=== PATIENT | female | born 1980 | race Caucasian/White ===

== ENCOUNTER 2017-09-20 17:39 | Emergency (ER) | payer MEDICAID | END 2017-09-20 21:24 | disposition home or self-care (01) | LOC: D.ER 17:39 | DX: L03.113 Cellulitis of right upper limb (principal); E11.9 Type 2 diabetes mellitus without complications; F17.200 Nicotine dependence, unspecified, uncomplicated ==

== ENCOUNTER 2018-01-10 07:50 | Day surgery (SDC) | payer MEDICAID ==
[2018-01-09 12:34] LABS: BASOPHILS 0.2 % (0-2); HEMATOCRIT 41.2 % (36.0-48.0); HEMOGLOBIN 14.2 g/dL (12-16); IMMATURE GRANULOCYTES 0.2 % (0-5); LYMPHOCYTES 34.1 % (15-50); MCHC 34.5 g/dL (31.0-37.0); MCV 92.8 fL (80.0-100.0); MEAN PLATELET VOLUME 12.1 fL (7.4-10.4); MONOCYTES 4.6 % (2-11); NEUTROPHILS 57.9 % (40-80); PLATELET COUNT 162 10x3/uL (130-400); RBC 4.44 10x6/uL (4.00-5.40); RDW 12.9 % (11.5-14.5); WBC 8.5 10x3/uL (4.8-10.8)
[2018-01-09 12:44] LABS: CALC OSMOLALITY 284 mosm/kg (275-300); CALCIUM 8.7 mg/dL (8.5-10.1); CARBON DIOXIDE 33.5 mmol/L (21.0-32.0); CHLORIDE - SERUM 105 mmol/L (98-107); CREATININE - SERUM 0.6 mg/dL (0.6-1.3); GLUCOSE 128 mg/dL (74-106); POTASSIUM - SERUM 4.7 mmol/L (3.5-5.1); SODIUM 142 mmol/L (136-145); UREA NITROGEN 12 mg/dL (7-18); eGFR NON AFRICAN AMERICAN > 90 mL/min (90-120)
[~2018-01-10] VITALS: Ht 170.2 cm; Wt 110.7 kg
--- NOTE | ~2018-01-10 | OP ---
PATIENT NAME: GABRIEL FAULKNER MEDICAL RECORD: [id number] :84 LOCATION:D.OPS ADMISSION DATE: SURGEON: CARLOS SORIANO MD DATE OF OPERATION: 01/10/2018 PREOPERATIVE DIAGNOSIS: Pelvic pain. POSTOPERATIVE DIAGNOSES: 1. Pelvic pain. 2. Pelvic adhesions. PROCEDURES: 1. Diagnostic laparoscopy. 2. Lysis of adhesions. 3. Bilateral salpingo-oophorectomy. SURGEON: Carlos Soriano MD MOTOR REBUILDER: Dianne Dumont ANESTHESIOLOGIST: Jalen Valencia MD ANESTHETIC: General. FINDINGS: Adhesions of the omentum across the lower pelvis. The right ovary was unremarkable as well as the right tube. The left ovary was adhesed to the sidewall with left tube appearing unremarkable. Portion of the large bowel was adhesed to the left abdominal wall. What was visualized of the liver edge was unremarkable. Dense adhesions were above the umbilicus. SPECIMENS REMOVED: Right and left ovary with tubes. SPECIMEN DISPOSITION: Pathology. ESTIMATED BLOOD LOSS: Less than or equal to 50 cc. FLUIDS: One liter lactated Ringer's. URINE OUTPUT: Quantity sufficient void prior to the procedure. DRAINS: None. COMPLICATION: None. INDICATION: The patient is a 37-year-old female with long-standing pelvic pain. Long discussion was held with the patient in regards to Depo Lupron versus oophorectomy. The patient has concerns of ovarian cancer and persistent pelvic pain. The patient desires bilateral salpingo-oophorectomy. DESCRIPTION OF PROCEDURE: After informed consent was assured, the patient was taken to the operating room, where anesthetic was obtained. The patient was placed supine on the table and prepped and draped. An incision was made to accommodate a 5-mm trocar, which was inserted and pneumoperitoneum was developed without incident. Accessory ports were now placed in right and left lower quadrants and in the midline. A 10-12 port was the midline port. Through the OPERATIVE REPORT [id number] GABRIEL FAULKNER right hand port, a grasper was inserted and the left tube and ovary were brought on gentle traction to the midline. Using a [employer] coagulation cutter, the infundibulopelvic ligament was compressed, coagulated, and then . Three overlying areas of desiccation were performed before incising the IP. The dissection was carried down underneath the ovary and through the adhesions of the left side until freed. The ovary was freed and then removed through the 10-12 port. Inspection revealed adequate hemostasis and the ureter was well below the operative field. Attention was now directed to the right side. To facilitate visualization of the right ovary, the pelvic adhesions were taken down, beginning on the right and across the midline in the lower pelvis. Once this was performed, the ovary was grasped from the left hand port and placed on gentle traction. Again, the infundibulopelvic ligament was serially desiccated and incised. Once the incision has been performed, the serial compression, coagulation, and separation of the tissues connected to the right ovary was carried out until it was freed. Once the ovary was freed, an Endobag was now inserted to the pelvis and opened and the ovary was placed within. The Endobag was now removed with the ovary. The pelvis was now copiously irrigated and irrigant was removed. All dissection escobar were inspected and found to be hemostatic. The accessory trocars were removed under direct visualization as the pneumoperitoneum was released. The primary trocar was now removed. Subcuticular stitch and Dermabond were applied. Sponge, lap, and needle counts correct times 2. The patient went to the recovery area in stable condition. TRANSINT:[id number] Voice Confirmation ID: [id number] DOCUMENT ID: [id number] CARLOS SORIANO MD at 0431 CC: [id number] DICTATION DATE: 01/10/18 1411 SCHOOL BUS INSPECTOR: 01/10/18 1535 [facility] 01/10/18 [id number] [place] [address]
[~2018-01-10 07:50] MED LIST: ALDACTONE50 MG PO; CIPRO500 MG PO; FARXIGA10 MG PO; GLUCOTROL XL 1010 MG PO; LAMISIL250 MG PO; LEVOTHYROXINE100 MCG PO; PRAVASTATIN SOD10 MG PO; ULTRAM50 MG PO
[2018-01-10 10:15] VITALS: BP 120/74; Ht 170.2 cm; Wt 110.7 kg
== END 2018-01-10 16:45 | disposition home or self-care (01) ==
LOC: D.OPS 07:50 → D.PAN 08:00 → D.OPS 09:55 → D.PAN 09:55 → D.OPS 10:30
PROVIDERS: Obstetrics & Gynecology
DX: R10.2 Pelvic and perineal pain (principal); N73.6 Female pelvic peritoneal adhesions (postinfective)

== ENCOUNTER 2018-06-06 12:12 | Emergency (ER) | payer MEDICAID ==
[~2018-06-06] VITALS: Ht 170.2 cm; Wt 109.1 kg
[2018-06-06 12:23] VITALS: BP 133/84; Ht 170.2 cm; Wt 109.1 kg
[2018-06-06] MEDS ORDERED: NAPROSYN500 MG PO (13:50)
== END 2018-06-06 14:10 | disposition home or self-care (01) ==
LOC: D.ER 12:12
DX: M25.511 Pain in right shoulder (principal); S46.001A Unspecified injury of muscle(s) and tendon(s) of the rotator cuff of right shoulder, initial encounter; X58.XXXA Exposure to other specified factors, initial encounter; Y93.89 Activity, other specified; Y92.019 Unspecified place in single-family (private) house as the place of occurrence of the external cause

== ENCOUNTER 2018-06-11 07:17 | Emergency (ER) | payer MEDICAID ==
[~2018-06-11] VITALS: Ht 170.2 cm; Wt 109.1 kg
[~2018-06-11 07:17] MED LIST changes: +NAPROSYN500 MG PO
[2018-06-11 07:21] VITALS: Ht 170.2 cm; Wt 109.1 kg
[2018-06-11] MEDS ORDERED: GLUCOPHAGE500 MG PO (07:41)
[2018-06-11] MEDS ORDERED: INSULIN LANTUS (07:42)
[2018-06-11 07:46] LABS: BASOPHILS 0.3 % (0-2); EOSINOPHILS 6.4 % (0-7); HEMATOCRIT 39.2 % (36.0-48.0); HEMOGLOBIN 13.8 g/dL (12-16); IMMATURE GRANULOCYTES 0.2 % (0-5); LYMPHOCYTES 46.4 % (15-50); MCH 31.8 pg (26.0-34.0); MCHC 35.2 g/dL (31.0-37.0); MCV 90.3 fL (80.0-100.0); MEAN PLATELET VOLUME 12.3 fL (7.4-10.4); MONOCYTES 6.1 % (2-11); NEUTROPHILS 40.6 % (40-80); PLATELET COUNT 155 10x3/uL (130-400); RBC 4.34 10x6/uL (4.00-5.40); RDW 12.5 % (11.5-14.5); WBC 6.6 10x3/uL (4.8-10.8)
[2018-06-11] MEDS ORDERED: HORMONE PATCH (07:49)
[2018-06-11 08:02] LABS: APPEARANCE CLEAR (CLEAR); BACTERIA FEW /hpf (NONE SEEN); BILIRUBIN NEGATIVE (NEGATIVE); COLOR YELLOW (YELLOW); EPITHELIAL CELLS OCC /hpf (0-5); GLUCOSE 1000 mg/dL (NEGATIVE); KETONE NEGATIVE (NEGATIVE); NITRITE NEGATIVE (NEGATIVE); PROTEIN NEGATIVE (NEGATIVE); RED CELLS - URINE 0-5 /hpf (0-5); SPECIFIC GRAVITY 1.025 (1.005-1.020); UROBILINOGEN NORMAL (NORMAL); WHITE CELLS - URINE 0-5 /hpf (0-5)
[2018-06-11 08:03] LABS: ALBUMIN 3.3 g/dL (3.4-5.0); ALKALINE PHOSPHATASE 106 U/L (46-116); ALT (SGPT) 40 U/L (10-68); BILIRUBIN - TOTAL 0.33 mg/dL (0.2-1.3); CALC OSMOLALITY 288 mosm/kg (275-300); CALCIUM 8.6 mg/dL (8.5-10.1); CARBON DIOXIDE 24.6 mmol/L (21.0-32.0); CHLORIDE - SERUM 101 mmol/L (98-107); CREATININE - SERUM 0.8 mg/dL (0.6-1.3); MAGNESIUM - SERUM 1.9 mg/dL (1.8-2.4); POTASSIUM - SERUM 4.3 mmol/L (3.5-5.1); PROTEIN - SERUM 7.4 g/dL (6.4-8.2); SODIUM 136 mmol/L (136-145); UREA NITROGEN 24 mg/dL (7-18); eGFR NON AFRICAN AMERICAN 86 mL/min (90-120)
[2018-06-11 08:04] LABS: GLUCOSE 339 mg/dL (74-106)
[2018-06-11 08:15] LABS: KETONE - SERUM NEGATIVE (NEGATIVE)
[2018-06-11 10:33] VITALS: BP 136/95
== END 2018-06-11 10:34 | disposition home or self-care (01) ==
LOC: D.ER 07:17
PROVIDERS: Family Medicine
DX: A59.9 Trichomoniasis, unspecified (principal); E11.65 Type 2 diabetes mellitus with hyperglycemia; Z79.4 Long term (current) use of insulin

== ENCOUNTER 2019-01-28 08:00 | Day surgery (SDC) | payer MEDICAID ==
[2019-01-25 13:59] LABS: HEMATOCRIT 38.8 % (36.0-48.0); HEMOGLOBIN 13.9 g/dL (12-16); MCH 31.8 pg (26.0-34.0); MCHC 35.8 g/dL (31.0-37.0); MCV 88.8 fL (80.0-100.0); RBC 4.37 10x6/uL (4.00-5.40); RDW 12.6 % (11.5-14.5); WBC 6.4 10x3/uL (4.8-10.8)
[2019-01-25 14:12] LABS: CALC OSMOLALITY 285 mosm/kg (275-300); CALCIUM 8.8 mg/dL (8.5-10.1); CHLORIDE - SERUM 102 mmol/L (98-107); CREATININE - SERUM 0.8 mg/dL (0.6-1.3); SODIUM 137 mmol/L (136-145); UREA NITROGEN 21 mg/dL (7-18); eGFR NON AFRICAN AMERICAN 86 mL/min (90-120)
[2019-01-25 14:13] LABS: GLUCOSE 253 mg/dL (74-106)
[~2019-01-28] VITALS: Ht 170.2 cm; Wt 113.4 kg
[~2019-01-28 08:00] MED LIST changes: +GLUCOPHAGE500 MG PO; +HORMONE PATCH; +INSULIN LANTUS
[2019-01-28 08:59] VITALS: BP 144/88; Ht 170.2 cm; Wt 113.4 kg
--- NOTE | 2019-01-28 09:47 | NUR ---
ANESTHESIA TO START IV. TRIED CALLING ANESTHESIA TEAM AND EACH ONE IS WORKING A CASE. CALLED AND SPOKE TO VIC AND SHE IS AWARE. WILL LET ANESTHESIOLOGIST OR OPTOELECTRONICS ENGINEER KNOW WHEN SHE SEE ONE.
[2019-01-28] MEDS ORDERED: HYDROCODON-ACE1 EA10 PO (13:44)
--- NOTE | 2019-01-31 12:14 | OP ---
PATIENT NAME: GABRIEL FAULKNER MEDICAL RECORD: [id number] :84 LOCATION:[facility] ADMISSION DATE: SURGEON: JENIFFER WALTER MD DATE OF OPERATION: 01/28/2019 PREOPERATIVE DIAGNOSES: Impingement syndrome of the right shoulder with adhesive capsulitis. POSTOPERATIVE DIAGNOSES: Impingement syndrome of the right shoulder with adhesive capsulitis. PROCEDURE: Right shoulder arthroscopy with distal clavicle excision done through separate incision -- 1 cm. PROCEDURES: 1. Arthroscopic subacromial decompression with acromioplasty and bursectomy. 2. Manipulation under anesthesia. SURGEON: Jeniffer Walter MD TECH ED/WOODSHOP TEACHER: RADHA Elizondo, assisted with manipulating shoulder and closing. INTRAOPERATIVE COMPLICATIONS: None. SUMMARY OF PATHOLOGIC FINDINGS: Consistent with the patient's diagnosis of diabetes with high A1c, the patient did have substantial amount of adhesive capsulitis. This was released with excellent release, although she did have excoriation of the coracoacromial ligament as well as acromioclavicular arthritis, also consistent with the patient's preoperative MRI and physical exam. OPERATIVE SUMMARY IN DETAIL: After obtaining the appropriate preoperative orthopedic surgery consent as well as anesthetic consultation, evaluation and clearance, the patient was brought to the operating room and placed on the operating table placed in supine position. After general laryngeal mask airway was administered, the patient was placed in a left lateral decubitus position. All pressure points were well padded to include down leg peroneal pad as well as axillary roll. The patient was held firmly to the operating table using the vacuum pack suction system. At this point, the appropriate timeout was taken and agreed upon by all in the operative suite. Right upper extremity and shoulder were then prepped and draped in routine sterile fashion. The arm was held in Arthrex traction at 30 degrees of forward flexion, 30 degrees of abduction with 10 pounds of traction laterally. Prior to establishing arthroscopy, the shoulder was manipulated nicely: The shoulder scapula was stabilized, the shoulder was manipulated first in abduction followed by external rotation followed by forward flexion followed by internal rotation, all resulting in excellent release of adhesions about the shoulder. Next, arthroscopy was established in glenohumeral joint from a posterior portal. Other than blood, the intraarticular aspect of the shoulder looked okay. The patient did have a substantial amount of biceps tendinitis; however, no fraying or tearing was noted. Attention was then turned to the subacromial space. Accessory lateral portal was created and the Arthrex Pearcy 1 tissue ablation system was utilized to denude the undersurface of the acromion of all soft tissue elements and release the coracoacromial ligament. At this point, a 5-0 barrel bur was used to perform acromioplasty at the level of acromioclavicular OPERATIVE REPORT [id number] GABRIEL FAULKNER joint and then through a separate arthroscopic portal anteriorly. Distal clavicle was excised for 1 cm. Having completed this, arthroscopy portals were closed in routine interrupted fashion using 4-0 Prolene. Sterile dressings were applied. The patient was awakened and taken to recovery room in stable condition. All final needle and sponge counts were correct. TRANSINT:[id number] Voice Confirmation ID: [id number] DOCUMENT ID: [id number] 01/31/2019 Edited for felipe Gudino. SABA OLSON, JENIFFER ROSA at 1214 CC: [id number] DICTATION DATE: 01/29/19 1626 STRATEGIC PLANNER: 01/29/19 2340 [facility] 01/28/19 [facility] [address] [place] [address]
== END 2019-01-28 15:30 | disposition home or self-care (01) ==
LOC: D.OPS 08:00 → D.PAN 14:45 → D.OPS 14:45
PROVIDERS: Anesthesiology; ATTEND Orthopaedic Surgery
DX: M75.41 Impingement syndrome of right shoulder (principal); M75.01 Adhesive capsulitis of right shoulder; Z01.812 Encounter for preprocedural laboratory examination

== ENCOUNTER 2019-06-02 19:31 | Observation (INO) | payer MEDICAID ==
[~2019-06-02] VITALS: Ht 170.2 cm; Wt 108.9 kg
[~2019-06-02 19:31] MED LIST changes: +HYDROCODON-ACE1 EA10 PO
--- NOTE | 2019-06-02 19:50 | NUR ---
BLOOD SUGAR 588
[2019-06-02 20:18] LABS: BASOPHILS 0.6 % (0-2); EOSINOPHILS 5.1 % (0-7); HEMATOCRIT 42.7 % (36.0-48.0); HEMOGLOBIN 15.2 g/dL (12-16); IMMATURE GRANULOCYTES 0.3 % (0-5); LYMPHOCYTES 45.2 % (15-50); MCH 31.4 pg (26.0-34.0); MCHC 35.6 g/dL (31.0-37.0); MCV 88.2 fL (80.0-100.0); MEAN PLATELET VOLUME 12.3 fL (7.4-10.4); MONOCYTES 4.3 % (2-11); NEUTROPHILS 44.5 % (40-80); PLATELET COUNT 165 10x3/uL (130-400); RBC 4.84 10x6/uL (4.00-5.40); RDW 12.4 % (11.5-14.5); WBC 6.3 10x3/uL (4.8-10.8)
[2019-06-02 20:20] LABS: APPEARANCE CLEAR (CLEAR); BILIRUBIN NEGATIVE (NEGATIVE); COLOR STRAW (YELLOW); GLUCOSE 1000 mg/dL (NEGATIVE); KETONE NEGATIVE (NEGATIVE); NITRITE NEGATIVE (NEGATIVE); PROTEIN NEGATIVE (NEGATIVE); SPECIFIC GRAVITY 1.015 (1.005-1.020); UROBILINOGEN NORMAL (NORMAL)
[2019-06-02 20:22] LABS: BACTERIA FEW /hpf (NEGATIVE); RED CELLS - URINE RARE /hpf (0-5); WHITE CELLS - URINE OCC /hpf (NEGATIVE)
[2019-06-02 20:30] LABS: ALBUMIN 3.7 g/dL (3.4-5.0); ALKALINE PHOSPHATASE 197 U/L (46-116); ALT (SGPT) 49 U/L (10-68); CALCIUM 8.9 mg/dL (8.5-10.1); CARBON DIOXIDE 24.8 mmol/L (21.0-32.0); CHLORIDE - SERUM 95 mmol/L (98-107); CREATININE - SERUM 0.8 mg/dL (0.6-1.3); PROTEIN - SERUM 7.7 g/dL (6.4-8.2); SODIUM 131 mmol/L (136-145); UREA NITROGEN 17 mg/dL (7-18); eGFR NON AFRICAN AMERICAN 85 mL/min (90-120)
[2019-06-02 20:32] LABS: CALC OSMOLALITY 291 mosm/kg (275-300)
[2019-06-02 20:33] LABS: GLUCOSE 592 mg/dL (74-106)
[2019-06-02 21:01] LABS: KETONE - SERUM NEGATIVE (NEGATIVE)
--- NOTE | 2019-06-02 23:10 | NUR ---
PT AMBULATED TO RESTROOM WITH A STEADY GAIT. NO S/S OF ACUTE DISTRESS NOTED.
[2019-06-03] VITALS (7 sets, daily range): BP systolic 98–148; BP diastolic 49–97; Ht 170.2 cm; Wt 108.9 kg
--- NOTE | 2019-06-03 00:19 | NUR ---
FSBS 363
--- NOTE | 2019-06-03 00:53 | NUR ---
NEW ADMIT TO DOCTOR MARTI ON MED 3 FROM ER FOR HYPERGLYCEMIA. PATIENT TRANSFERED TO [facility] 3 VIA WHEELCHAIR. UPON ARRIVAL TO MED 3, PATIENT WAS CALM AND COOPERATIVE WITH ADMISSION ASSESSMENTS. PATIENT IS ALERT AND ORIENTED X4. AMBULATORY. 22 G IV IN RIGHT HAND INFUSING NS BOLUS @ 125. DENIES HAVING ANY PAIN. BED IN LOWEST POSITION. 2 SIDE RAILS UP. BELONGINGS AND CALL LIGHT WITHIN REACH. WILL CONTINUE TO MONITOR.
--- NOTE | 2019-06-03 03:33 | NUR ---
VS TAKEN. BLANKET PROVIDED. WILL CONTINUE POC.
--- NOTE | 2019-06-03 05:00 | NUR ---
IO COLLECTED. PT VERBALIZES NO COMPLAINTS. NO SIGNS OF ACUTE DISTRESS NOTED WILL CONTINUE TO MONITOR.
--- NOTE | 2019-06-03 19:28 | NUR ---
RECEIVED LAYING IN BED WITH EYES CLOSED. EASILY AROUSES WITH VERBAL STIMULI. ORIENTED X4. UP AD ELLIOT TO B/R. IV TO RIGHT HAND SL.. DSG CDI WITH NO REDNESS OR SWELLING. FSBS MONITORED D/T HYPERGLYCEMIA. DENIES ANY NEEDS AT THIS TIME.
[2019-06-04 04:15] VITALS: BP 114/53
[2019-06-04 06:34] LABS: HEMATOCRIT 41.3 % (36.0-48.0); HEMOGLOBIN 14.2 g/dL (12-16); MCH 31.1 pg (26.0-34.0); MCHC 34.4 g/dL (31.0-37.0); MEAN PLATELET VOLUME 12.6 fL (7.4-10.4); PLATELET COUNT 153 10x3/uL (130-400); RBC 4.57 10x6/uL (4.00-5.40); RDW 12.6 % (11.5-14.5); WBC 7.2 10x3/uL (4.8-10.8)
[2019-06-04 06:44] LABS: CALC OSMOLALITY 283 mosm/kg (275-300); CALCIUM 8.6 mg/dL (8.5-10.1); CARBON DIOXIDE 27.1 mmol/L (21.0-32.0); CHLORIDE - SERUM 105 mmol/L (98-107); CREATININE - SERUM 0.5 mg/dL (0.6-1.3); GLUCOSE 90 mg/dL (74-106); MAGNESIUM - SERUM 1.9 mg/dL (1.8-2.4); POTASSIUM - SERUM 3.3 mmol/L (3.5-5.1); SODIUM 142 mmol/L (136-145); UREA NITROGEN 15 mg/dL (7-18); eGFR NON AFRICAN AMERICAN > 90 mL/min (90-120)
[2019-06-04 06:52] LABS: MCV 90.4 fL (80.0-100.0)
--- NOTE | 2019-06-04 07:27 | NUR ---
REPORT RECIEVED. PT SITTING UP IN BED. RR EVEN AND UNLABORED. SHE HAS A R HAND PIV THAT IS SL. BED LOCKED AND IN LOWEST POSITION, CALL LIGHT WITHIN REACH. WILL CTM
[2019-06-04 07:34] VITALS: BP 116/75
--- NOTE | 2019-06-04 09:08 | MORECARE ---
CASE MANAGEMENT DISCHARGE SUMMARY PATIENT: GABRIEL FAULKNER UNIT: [id number] ADM DATE: 06/02/19 AGE: 39 : [birth year] SEX: F ROOM/BED: D.1209 AUTHOR: RICHARD SINGER PHYSICIAN: REFERRING PHYSICIAN: VERONICA MARTI MD DATE OF SERVICE: 06/04/19 Discharge Plan Patient Name: GABRIEL FAULKNER [facility] [facility] 1980 Planned Disposition: Home Anticipated Discharge Date: 06/04/19 Discharge Date: Expected LOS: 2 Initial Reviewer: [email or web address] Initial Review Date: 06/03/2019 Generated: 06/04/19 10:07 am Patient Name: GABRIEL FAULKNER Page [id number] at 0908 All edits/amendments must be made on the electronic document DICTATION DATE: 06/04/19906 WIND ENERGY TECHNICIAN: DESIRAE 06/04/19906 RPT#: [id number] DC DATE: STATUS: ADM IN [facility] [address] [place] [address] END OF REPORT
[2019-06-04 09:27] LABS: EOSINOPHILS 4 % (0-7); LYMPHOCYTES 56 % (15-50); MONOCYTES 9 % (2-11); NEUTROPHILS 29 % (40-80); PLATELET ESTIMATE NORMAL
[2019-06-04 09:28] LABS: HYPOCHROMASIA OCC; ROULEAUX OCC
--- NOTE | 2019-06-04 09:34 | NUR ---
I have reviewed this patient and I concur with the Shift Assessment completed by the Licensed Practical Nurse today this shift.
[2019-06-04 13:18] VITALS: BP 104/65
[2019-06-04] MEDS ORDERED: LEVOTHYROXINE100 MCG PO (15:19)
[2019-06-04] MEDS ORDERED: GLUCOTROL XL 1010 MG PO (15:19)
[2019-06-04] MEDS ORDERED: GLUCOPHAGE500 MG PO (15:19)
--- NOTE | 2019-06-04 15:24 | NUR ---
DC PAPERWORK GONE OVER AND SIGNED WITH PT. ALL QUESTIONS ANSWERED. PIV REMOVED. CATH TIP FULLY INTACT. ALL VALUBLES REMOVED FROM ROOM AND PT WHEELED TO FRONT ENTRANCE.
--- NOTE | 2019-06-06 19:18 | MORECARE ---
CASE MANAGEMENT DISCHARGE SUMMARY PATIENT: GABRIEL FAULKNER UNIT: [id number] ADM DATE: 06/02/19 AGE: 39 : 82 SEX: F ROOM/BED: D.1209 AUTHOR: RICHARD SINGER PHYSICIAN: REFERRING PHYSICIAN: VERONICA MARTI MD DATE OF SERVICE: 06/06/19 Discharge Plan Patient Name: GABRIEL FAULKNER Facility: [facility]:[place] : 1980 Planned Disposition: Home Anticipated Discharge Date: 06/04/19 Discharge Date: 06/04/2019 Expected LOS: 2 Initial Reviewer: [email or web address] Initial Review Date: 06/03/2019 Generated: 06/06/19 8:17 pm Comments DCP- Discharge Planning Updated by [email or web address]: Heidi Rodriguez on 06/06/19 6:[address] LATE ENTRY 06/03/19 Patient Name: GABRIEL FAULKNER Admission Status: ER Accout number: [id number] Admission Date: 06-02-2019 : 1980 Admission Diagnosis:TYPE 2 DIABETES MELLITUS WITH HYPERGLYCEMIA Attending: VERONICA MARTI Current LOS: 2 Anticipated DC Date: 06-04-2019 Planned Disposition: Home Primary Insurance: [facility] [employer] [facility] Discharge Planning Comments: CM met with patient to complete initial dc planning assessment. CM educated patient on the CM role and verbal consent given by patient to complete assessment. Patient lives at home with her family where she is independent with her care. At discharge patient plans to return home and feels this is a safe discharge. CM discussed availability of home health, rehab services, and medical equipment. Her daughter will be her tour driver home. Patient has glucometer and strips. Patient states she has been taking her insulin. Patient denied known discharge needs at this time. CM will continue to follow and will assist as needed with dc plans/needs. Senior Training And Development Rep: Heidi Rodriguez Last DP export: 06/04/19 8:08 Patient Name: GABRIEL FAULKNER Page [id number] at 1918 All edits/amendments must be made on the electronic document DICTATION DATE: 06/06/191916 SEED LABORATORY TECHNICIAN: DESIRAE 06/06/191916 RPT#: [id number] DC DATE:06/04/19 STATUS: DIS IN [facility] [address] [place] [address] END OF REPORT
== END 2019-06-04 15:50 | disposition home or self-care (01) ==
LOC: D.ER 19:31 → OBSVTIME 22:27 → D.M3 22:27
PROVIDERS: Emergency Medicine; Family Medicine; ADMIT Internal Medicine Nephrology; ATTEND Internal Medicine Nephrology
DX: E11.65 Type 2 diabetes mellitus with hyperglycemia (principal); E03.9 Hypothyroidism, unspecified; F17.203 Nicotine dependence unspecified, with withdrawal; E78.5 Hyperlipidemia, unspecified; J45.909 Unspecified asthma, uncomplicated; R53.1 Weakness

== ENCOUNTER 2019-06-09 14:20 | Emergency (ER) | payer MEDICAID ==
[~2019-06-09] VITALS: Ht 170.2 cm; Wt 109.1 kg
[2019-06-09 14:25] VITALS: Ht 170.2 cm; Wt 109.1 kg
[2019-06-09] MEDS ORDERED: MUCINEX DM ER1 EAC1 PO (15:20)
[2019-06-09] MEDS ORDERED: VIBRAMYCIN 100100 MG PO (15:20)
[2019-06-09 15:31] VITALS: BP 110/77
== END 2019-06-09 15:32 | disposition home or self-care (01) ==
LOC: D.ER 14:20
DX: J06.9 Acute upper respiratory infection, unspecified (principal); J40 Bronchitis, not specified as acute or chronic; Z72.0 Tobacco use; E11.9 Type 2 diabetes mellitus without complications; Z79.84 Long term (current) use of oral hypoglycemic drugs; R52 Pain, unspecified

== ENCOUNTER 2020-03-14 23:57 | Emergency (ER) | payer MEDICAID ==
[~2020-03-14] VITALS: Ht 170.2 cm; Wt 109.1 kg
[~2020-03-14 23:57] MED LIST changes: +MUCINEX DM ER1 EAC1 PO; +VIBRAMYCIN 100100 MG PO
[2020-03-15 00:01] VITALS: Ht 170.2 cm; Wt 109.1 kg
[2020-03-15] MEDS ORDERED: PROMETHAZINE W473 ML PO (00:04)
[2020-03-15] MEDS ORDERED: FEXOFENADINE H180 MG (00:05)
[2020-03-15] MEDS ORDERED: ULTRAM50 MG PO (00:05)
[2020-03-15 00:18] LABS: BILIRUBIN NEGATIVE (NEGATIVE); KETONE NEGATIVE (NEGATIVE); NITRITE NEGATIVE (NEGATIVE); UROBILINOGEN NORMAL mg/dL (< 2)
[2020-03-15 00:43] LABS: BASOPHILS 0.2 % (0-2); EOSINOPHILS 3.2 % (0-7); HEMOGLOBIN 14.4 g/dL (12-16); IMMATURE GRANULOCYTES 0.2 % (0-5); LYMPHOCYTES 39.9 % (15-50); MCH 31.2 pg (26.0-34.0); MCHC 34.3 g/dL (31.0-37.0); MCV 91.1 fL (80.0-100.0); MEAN PLATELET VOLUME 11.6 fL (7.4-10.4); NEUTROPHILS 51.5 % (40-80); PLATELET COUNT 173 10x3/uL (130-400); RBC 4.61 10x6/uL (4.00-5.40); RDW 12.7 % (11.5-14.5); WBC 9.1 10x3/uL (4.8-10.8)
[2020-03-15 00:57] LABS: ALBUMIN 3.4 g/dL (3.4-5.0); BILIRUBIN - TOTAL 0.28 mg/dL (0.2-1.3); CALCIUM 8.8 mg/dL (8.5-10.1); CARBON DIOXIDE 29.9 mmol/L (21.0-32.0); CREATININE - SERUM 0.9 mg/dL (0.6-1.3); POTASSIUM - SERUM 3.9 mmol/L (3.5-5.1); PROTEIN - SERUM 7.1 g/dL (6.4-8.2)
[2020-03-15 03:16] VITALS: BP 120/72
== END 2020-03-15 03:16 | disposition home or self-care (01) ==
LOC: D.ER 23:57
PROVIDERS: Family Medicine
DX: J40 Bronchitis, not specified as acute or chronic (principal); E11.65 Type 2 diabetes mellitus with hyperglycemia; Z79.4 Long term (current) use of insulin; Z72.0 Tobacco use

== ENCOUNTER 2020-03-23 14:14 | Emergency (ER) | payer MEDICAID ==
[~2020-03-23] VITALS: Ht 170.2 cm; Wt 109.1 kg
[~2020-03-23 14:14] MED LIST changes: +FEXOFENADINE H180 MG; +PROMETHAZINE W473 ML PO
[2020-03-23 14:28] VITALS: Ht 170.2 cm; Wt 109.1 kg
[2020-03-23] MEDS ORDERED: ALBUTEROL2.5 MG/3 M INH (17:52)
[2020-03-23 18:22] VITALS: BP 126/71
== END 2020-03-23 18:24 | disposition home or self-care (01) ==
LOC: D.ER 14:14
DX: J20.9 Acute bronchitis, unspecified (principal); E11.9 Type 2 diabetes mellitus without complications; K21.9 Gastro-esophageal reflux disease without esophagitis; Z72.0 Tobacco use; Z79.84 Long term (current) use of oral hypoglycemic drugs

== ENCOUNTER 2020-08-29 23:30 | Emergency (ER) | payer BC ==
[~2020-08-29] VITALS: Ht 170.2 cm; Wt 109.1 kg
[~2020-08-29 23:30] MED LIST changes: +ALBUTEROL2.5 MG/3 M INH; +VOLTAREN75 MG PO
[2020-08-29 23:38] VITALS: BP 116/73; Ht 170.2 cm; Wt 109.1 kg
[2020-08-29] MEDS ORDERED: ZOVIRAX800 MG PO (23:41)
[2020-08-29] MEDS ORDERED: ESTRACE2 MG PO (23:42)
[2020-08-30] MEDS ORDERED: TORADOL10 MG PO (00:45)
[2020-08-30] MEDS ORDERED: METHOCARBAMOL500 MG PO (00:45)
== END 2020-08-30 00:58 | disposition home or self-care (01) ==
LOC: D.ER 23:30
DX: M25.512 Pain in left shoulder (principal); M79.632 Pain in left forearm; M62.830 Muscle spasm of back; E11.9 Type 2 diabetes mellitus without complications; J45.909 Unspecified asthma, uncomplicated; K21.9 Gastro-esophageal reflux disease without esophagitis

== ENCOUNTER 2020-09-13 16:34 | Emergency (ER) | payer BC ==
[~2020-09-13] VITALS: Ht 170.2 cm; Wt 109.1 kg
[~2020-09-13 16:34] MED LIST changes: +ESTRACE2 MG PO; +METHOCARBAMOL500 MG PO; +TORADOL10 MG PO; +ZOVIRAX800 MG PO
[2020-09-13 16:46] VITALS: Ht 170.2 cm; Wt 109.1 kg
[2020-09-13 17:15] LABS: BASOPHILS 0.9 % (0-2); EOSINOPHILS 5.5 % (0-7); HEMATOCRIT 44.8 % (36.0-48.0); HEMOGLOBIN 15.7 g/dL (12-16); IMMATURE GRANULOCYTES 0.1 % (0-5); LYMPHOCYTE ABS# 4.07 10x3/uL (1.18-3.74); LYMPHOCYTES 45.1 % (15-50); MCH 31.8 pg (26.0-34.0); MCV 90.7 fL (80.0-100.0); MEAN PLATELET VOLUME 12.6 fL (7.4-10.4); NEUTROPHIL ABS# 4.01 10x3/uL (1.56-6.13); NEUTROPHILS 44.4 % (40-80); PLATELET COUNT 186 10x3/uL (130-400); RBC 4.94 10x6/uL (4.00-5.40); RDW 12.2 % (11.5-14.5)
[2020-09-13 17:21] LABS: CALC OSMOLALITY 274 mosm/kg (275-300); CALCIUM 9.4 mg/dL (8.5-10.1); CARBON DIOXIDE 25.1 mmol/L (21.0-32.0); CHLORIDE - SERUM 100 mmol/L (98-107); CREATININE - SERUM 0.8 mg/dL (0.6-1.3); POTASSIUM - SERUM 3.8 mmol/L (3.5-5.1); SODIUM 134 mmol/L (136-145); UREA NITROGEN 17 mg/dL (7-18); eGFR NON AFRICAN AMERICAN 85 mL/min (90-120)
[2020-09-13 17:23] LABS: GLUCOSE 188 mg/dL (74-106)
[2020-09-13 17:27] LABS: ALBUMIN 3.9 g/dL (3.4-5.0); ALKALINE PHOSPHATASE 132 U/L (30-120); ALT (SGPT) 40 U/L (10-68); BILIRUBIN - TOTAL 0.39 mg/dL (0.2-1.3); MAGNESIUM - SERUM 1.9 mg/dL (1.8-2.4); PROTEIN - SERUM 7.9 g/dL (6.4-8.2)
[2020-09-13 18:13] LABS: BILIRUBIN NEGATIVE (NEGATIVE); KETONE NEGATIVE (NEGATIVE); NITRITE NEGATIVE (NEGATIVE); UROBILINOGEN NORMAL mg/dL (< 2)
[2020-09-13 18:17] LABS: BACTERIA FEW HPF (NONE SEEN); SQUAMOUS EPITHELIAL 2 HPF (0-4); WHITE CELLS - URINE 2 HPF (0-4)
[2020-09-13 18:47] VITALS: BP 138/87
== END 2020-09-13 18:49 | disposition home or self-care (01) ==
LOC: D.ER 16:34
PROVIDERS: Family Medicine
DX: E11.65 Type 2 diabetes mellitus with hyperglycemia (principal); Z91.14 Patient's other noncompliance with medication regimen; E86.0 Dehydration; Z79.84 Long term (current) use of oral hypoglycemic drugs; K21.9 Gastro-esophageal reflux disease without esophagitis; J45.909 Unspecified asthma, uncomplicated; Z72.0 Tobacco use

== ENCOUNTER 2020-11-13 11:12 | Emergency (ER) | payer BC ==
[~2020-11-13] VITALS: Ht 170.2 cm; Wt 111.4 kg
[2020-11-13 11:22] VITALS: BP 147/82; Ht 170.2 cm; Wt 111.4 kg
[2020-11-13] MEDS ORDERED: DOXYCYCLINE HY100 M2 PO (14:02)
[2020-11-13] MEDS ORDERED: HYDROCODON-ACE1 EAC7 PO (14:02)
== END 2020-11-13 15:24 | disposition home or self-care (01) ==
LOC: D.ER 11:12
DX: N75.1 Abscess of Bartholin's gland (principal); E11.9 Type 2 diabetes mellitus without complications; K21.9 Gastro-esophageal reflux disease without esophagitis; J45.909 Unspecified asthma, uncomplicated; Z72.0 Tobacco use; Z79.84 Long term (current) use of oral hypoglycemic drugs